=== PATIENT | male | born 1940 | race Hispanic/Latino ===

== ENCOUNTER 2020-03-29 09:00 | Inpatient (IN) | payer MEDICARE ==
[~2020-03-29] VITALS: Ht 176.5 cm; Wt 99.8 kg
[2020-04-04 12:03] LABS: BASOPHILS % (AUTO) 0.5 % (0.0-5.0); EOSINOPHILS % (AUTO) 1.5 % (0.0-8.0); HEMATOCRIT 40.3 % (42-54); LYMPHOCYTES % (AUTO) 27.8 % (21.0-51.0); MEAN CORPUSCULAR HEMOGLOBIN 30.3 pg (27.0-33.0); MEAN CORPUSCULAR HGB CONC 34.2 g/dL (32.0-36.0); MEAN CORPUSCULAR VOLUME 88.4 fL (79-99); MONOCYTES % (AUTO) 11.6 % (3.0-13.0); NEUTROPHILS % (AUTO) 58.2 % (40.0-77.0); PLATELET COUNT (AUTO) 298 K/uL (130-400); RED BLOOD CELL COUNT(AUTO) 4.56 MIL/uL (4.50-6.20); RED CELL DISTRIBUTION WIDTH 12.9 % (11.0-15.5); WHITE BLOOD COUNT (AUTO) 10.6 K/uL (4.8-10.8)
[2020-04-04 12:08] LABS: APPEARANCE,URINE Clear (CLEAR); BILIRUBIN,URINE Negative (NEGATIVE); COLOR,URINE Dark Yellow (YELLOW); GLUCOSE, URINE (UA) Negative (NEGATIVE); KETONES,URINE Negative (NEGATIVE); LEUKOCYTE ESTERASE ,URINE Negative (NEGATIVE); NITRATE,URINE Negative (NEGATIVE); OCCULT BLOOD,URINE Negative (NEGATIVE); PROTEIN,URINE Negative (NEGATIVE); UROBILINOGEN,URINE 0.2 mg/dL (0.2-1.0)
[2020-04-04 12:15] LABS: INR 0.98 (0.85-1.15); PROTHROMBIN TIME 10.6 SEC (9.6-11.6)
[2020-04-04 12:19] LABS: BACTERIA,URINE Rare /HPF (None Seen); RBC,URINE 0-1 /HPF (0-1); SQUAMOUS EPITHELIAL CELL,UR Rare /HPF (0-2); WBC,URINE 0-1 /HPF (0-1)
[2020-04-04 12:51] LABS: POTASSIUM 3.9 mmol/L (3.5-5.1)
[2020-04-04] MEDS ORDERED: KRIL500C PO (13:07)
[2020-04-04] MEDS ORDERED: UBID50TA3 PO (13:07)
[2020-04-04] MEDS ORDERED: LISI-613 PO (13:07)
[2020-04-04] MEDS ORDERED: CALC-1231 PO (13:07)
[2020-04-04 13:23] VITALS: BP 180/80
[2020-04-05] VITALS (23 sets, daily range): BP systolic 120–155; BP diastolic 63–77
[2020-04-05] MEDS ORDERED: B COMPLE (07:08)
[2020-04-05] MEDS ORDERED: CEFAZOLIN SODIUM 1 GM VIAL ONE ×2 (07:13→10:05)
[2020-04-05] MEDS ORDERED: LACTATED RINGERS 1000ML 1,000 ML IV ONE (07:14)
[2020-04-05] MEDS ORDERED: ACETAMINOPHEN EXTRA STRENGTH 500 MG TABLET ONE (08:00)
[2020-04-05] MEDS ORDERED: CELECOXIB 200 MG CAP ONE (08:01)
[2020-04-05] MEDS ORDERED: KETOROLAC TROMETHAMINE 15MG/ML ONE (08:01)
[2020-04-05] MEDS ORDERED: CELECOXIB 200 MG CAP PO SCH (08:15)
[2020-04-05] MEDS ORDERED: KETOROLAC TROMETHAMINE 15MG/ML IV SCH (08:15)
[2020-04-05] MEDS ORDERED: ACETAMINOPHEN EXTRA STRENGTH 500 MG TABLET PO SCH (08:15)
[2020-04-05] MEDS ORDERED: LIDOCAINE PF 2% 5ML ABBOJECT ONE (09:11)
[2020-04-05] MEDS ORDERED: FENTANYL CITRATE PF 50 MCG/1 ML 2ML VIAL ONE (09:12)
[2020-04-05] MEDS ORDERED: ROCURONIUM 10MG/1ML SYR 10 MG/ML ML ONE ×2 (09:12→10:40)
[2020-04-05] MEDS ORDERED: PROPOFOL 10 MG/ML 20ML VIAL IV ONE (09:12)
[2020-04-05] MEDS ORDERED: ROPIVACAINE 0.5% 5MG/ML 30ML IJ ONE (09:14)
[2020-04-05] MEDS ORDERED: TRANEXAMIC ACID 1000MG/10ML ONE ×2 (10:06→12:37)
[2020-04-05] MEDS ORDERED: EPHEDRINE SULFATE 50 MG/ML AMPULE ONE (10:41)
[2020-04-05] MEDS ORDERED: FERROUS FUMARATE 324 MG TABLET PO PRN (12:15)
[2020-04-05] MEDS ORDERED: LIDOCAINE HCL-MPF 1% 2ML VIAL IV PRN (12:15)
[2020-04-05] MEDS ORDERED: TRAMADOL HCL 50 MG TABLET PO PRN (12:15)
[2020-04-05] MEDS ORDERED: CALCIUM CARBONATE 500 MG TABLET PO PRN (12:15)
[2020-04-05] MEDS ORDERED: POTASSIUM CHLORIDE 20 MEQ ERTAB PO PRN (12:15)
[2020-04-05] MEDS ORDERED: KETOROLAC TROMETHAMINE 15MG/ML IV PRN (12:15)
[2020-04-05] MEDS ORDERED: ONDANSETRON HCL 4 MG/2 ML VIAL IVP PRN (12:15)
[2020-04-05] MEDS: ACETAMINOPHEN EXTRA STRENGTH 500 MG TABLET PO SCH ×2 (12:15→20:00)
[2020-04-05] MEDS ORDERED: POTASSIUM CHLORIDE 10% ELIXIR 20 MEQ/15 ML UDCUP PO PRN (12:15)
[2020-04-05] MEDS ORDERED: DiphenhydrAMINE HCL 50 MG/ML VIAL IVP PRN (12:15)
[2020-04-05] MEDS ORDERED: POTASSIUM CHLORIDE 20MEQ/100ML 100 ML IV PRN (12:15)
[2020-04-05] MEDS ORDERED: TEMAZEPAM 15 MG CAPSULE PO PRN (12:15)
[2020-04-05] MEDS ORDERED: OXYCODONE HCL 5 MG TAB PO PRN (12:15)
[2020-04-05] MEDS ORDERED: MEPERIDINE-PF 25 MG/ML SYG ONE ×2 (12:58→13:13)
[2020-04-05] MEDS: SODIUM CHLORIDE 0.9% 1000ML 1,000 ML IV SCH ×2 (14:00→22:15)
[2020-04-05] MEDS: CEFAZOLIN SODIUM 1 GM VIAL IVP SCH (17:25)
--- NOTE | 2020-04-05 17:26 | NUR ---
IA- SPOKE TO [facility] FOR DC PLANNING POST TKA- [facility] SUPPLIED PHYSICAL ADDRESS AND UPDATED IN SYSTEM. PATIENT LIVES WITH SPOUSE, PREVIOUSLY INDEPENDENT W/O NO DME, HOME SAFE/ACCESSIBLE WITHOUT STAIRS, [facility]SE TO PROVIDE TRANSPORT HOME,PT OF DR. JOSEPH AND FOLLOWS W/ HER REGULARLY. PLAN OF CARE EXPLAINED . AWARE THAT 3 IN 1 CHIAR IS NOT A COVERED ITEM, WILL EXPECT TO MAKE ARRANGEMENTS WITH DME COMPANY. [facility] AND [facility]. CM TO FOLLOW Addendum: 04/05/20 at 1733 by JOSIE RAMON RN CM Amended: Links added.
[2020-04-05] MEDS: OXYCODONE HCL 5 MG TAB PO PRN (19:59)
[2020-04-05] MEDS: PREGABALIN 25 MG CAP PO SCH (20:00)
[2020-04-05] MEDS: ASPIRIN 81MG TAB.CHEW PO SCH (20:00)
[2020-04-05] MEDS: FAMOTIDINE 20MG TAB 20 MG TAB PO SCH (20:00)
[2020-04-05] MEDS: CELECOXIB 200 MG CAP PO SCH (20:00)
[2020-04-06] VITALS (7 sets, daily range): BP systolic 117–141; BP diastolic 58–71
[2020-04-06] MEDS: CEFAZOLIN SODIUM 1 GM VIAL IVP SCH (00:26)
[2020-04-06] MEDS: OXYCODONE HCL 5 MG TAB PO PRN ×3 (00:27→20:36)
[2020-04-06 03:31] LABS: HEMATOCRIT 33.4 % (42-54); MEAN CORPUSCULAR HEMOGLOBIN 31.3 pg (27.0-33.0); MEAN CORPUSCULAR VOLUME 89.3 fL (79-99); RED BLOOD CELL COUNT(AUTO) 3.74 MIL/uL (4.50-6.20); RED CELL DISTRIBUTION WIDTH 12.7 % (11.0-15.5); WHITE BLOOD COUNT (AUTO) 16.6 K/uL (4.8-10.8)
[2020-04-06 03:43] LABS: CREATININE 1.3 mg/dL (0.5-1.5); POTASSIUM 4.3 mmol/L (3.5-5.1)
[2020-04-06] MEDS: ACETAMINOPHEN EXTRA STRENGTH 500 MG TABLET PO SCH ×3 (04:29→23:37)
[2020-04-06] MEDS: SODIUM CHLORIDE 0.9% 1000ML 1,000 ML IV SCH (08:15)
[2020-04-06] MEDS: VITAMIN D3 PO SCH (09:00)
[2020-04-06] MEDS: TAMSULOSIN HCL 0.4 MG CAP.ER.24H PO SCH (09:00)
[2020-04-06] MEDS: CALCIUM CARB PO SCH (09:00)
[2020-04-06] MEDS: VIT K1 PO SCH (09:00)
[2020-04-06] MEDS: PREGABALIN 25 MG CAP PO SCH ×2 (09:22→20:35)
[2020-04-06] MEDS: FAMOTIDINE 20MG TAB 20 MG TAB PO SCH ×2 (09:22→20:34)
[2020-04-06] MEDS: LISINOPRIL 20 MG TABLET PO SCH (09:23)
[2020-04-06] MEDS: POLYETHYLENE GLYCOL 3350 17 GM POWD.PACK PO SCH (09:23)
[2020-04-06] MEDS: ASPIRIN 81MG TAB.CHEW PO SCH ×2 (09:23→20:35)
[2020-04-06] MEDS: CELECOXIB 200 MG CAP PO SCH ×2 (09:23→20:35)
--- NOTE | 2020-04-06 10:00 | NUR ---
CM Note: [facility] pending approval, [facility] pending approval and delivery CM faxed order and clinicals to [facility], confirmation received. Spoke to Rosemarie received request. Will check benefits. Pt pending approval. Primary nurse aware. CM to cont to follow up. CM faxed orer and clnicals to [facility], confirmation received. Spoke to Iqra received request will work on DME, aware dcp once DME delivered. Pt pending approval and delivery for standard walker no wheels and 3 in 1 chair. Primary nurse aware. CM to cont to follow up.
--- NOTE | 2020-04-06 11:23 | NUR ---
[id number] patient signed IM Letter, I faxed IM Letter to [phone] and placed in chart under consent tab.
--- NOTE | 2020-04-06 16:32 | NUR ---
CM Note: [facility] approval CM spoke to Rosemarie narayan/[facility], pt has approval. Primary nurse aware. CM to cont to follow up.
--- NOTE | 2020-04-06 16:33 | NUR ---
RHONDA Note: [facility] approval pending delivery CM spoke to Iqra narayan/[facility], pt has approval for standard walker no wheels, pending to be delivered at home today/tomorrow. Primary nurse aware. CM to cont to follow up.
[2020-04-07 03:45] VITALS: BP 141/72
[2020-04-07 03:57] LABS: HEMATOCRIT 34.5 % (42-54); MEAN CORPUSCULAR HEMOGLOBIN 30.7 pg (27.0-33.0); MEAN CORPUSCULAR HGB CONC 33.6 g/dL (32.0-36.0); MEAN CORPUSCULAR VOLUME 91.3 fL (79-99); RED BLOOD CELL COUNT(AUTO) 3.78 MIL/uL (4.50-6.20); RED CELL DISTRIBUTION WIDTH 13.3 % (11.0-15.5); WHITE BLOOD COUNT (AUTO) 14.4 K/uL (4.8-10.8)
[2020-04-07 04:07] LABS: CREATININE 1.1 mg/dL (0.5-1.5); POTASSIUM 4.2 mmol/L (3.5-5.1)
[2020-04-07 07:30] VITALS: BP 146/77
[2020-04-07] MEDS: ACETAMINOPHEN EXTRA STRENGTH 500 MG TABLET PO SCH (07:57)
[2020-04-07] MEDS: OXYCODONE HCL 5 MG TAB PO PRN ×2 (07:58→12:00)
[2020-04-07] MEDS: CALCIUM CARB PO SCH (09:00)
[2020-04-07] MEDS: VIT K1 PO SCH (09:00)
[2020-04-07] MEDS: VITAMIN D3 PO SCH (09:00)
[2020-04-07] MEDS: TAMSULOSIN HCL 0.4 MG CAP.ER.24H PO SCH (09:00)
--- NOTE | 2020-04-07 09:30 | NUR ---
CM Note: [facility] delivered Pt verified standard walker no wheels delivered in pt's room. 3 in 1 chair purchased privately by spouse, will be delivered at pt's house. Primary nurse aware. Dr Mendoza updated. Pt has approval for [facility] yesterday. Safe to DC home via private car once MD clear. Primary nurse aware. CM to cont to follow up.
[2020-04-07] MEDS: PREGABALIN 25 MG CAP PO SCH (10:49)
[2020-04-07] MEDS: CELECOXIB 200 MG CAP PO SCH (10:50)
[2020-04-07] MEDS: LISINOPRIL 20 MG TABLET PO SCH (10:50)
[2020-04-07] MEDS: FAMOTIDINE 20MG TAB 20 MG TAB PO SCH (10:50)
[2020-04-07] MEDS: ASPIRIN 81MG TAB.CHEW PO SCH (10:50)
[2020-04-07] MEDS: POLYETHYLENE GLYCOL 3350 17 GM POWD.PACK PO SCH (10:51)
[2020-04-07 11:00] VITALS: BP 114/54
[2020-04-07] MEDS ORDERED: HYDR-4457 PO (11:36)
[2020-04-07] MEDS ORDERED: ASPI-1005 PO (11:36)
--- NOTE | 2020-04-07 14:50 | NUR ---
PT D/C TO HOME WITH HOME HEALTH; I HAVE TRIED TO CALL REPORT TO [facility] BUT IT WENT TO A VOICE MAIL I HAVE LEFT MY NAME AND NUMBER AND STATED THAT PT IS BEING D/C HOME TODAY; I HAVE CHANGED THE [employer] DRESSING TO PT'S RIGHT KNEE USING CLEAN TECHNIQUE AND APPLIED A NEW MELCHOR DRESSING--PT HAS A WELL APPROX. INC. LINE WITH ABSORBABLE SUTURES IN PLACE, SURROUNDING TISSUE PINK IN COLOR, NO REDNESS OR DRAINAGE NOTED, MOD. GENERALIZED EDEMA NOTED--PT REID. PROC. WELL--I DISCUSSED WITH PATIENT INC. CARE INSTRUCTIONS INCLUDING THAT IT IS OK TO SHOWER WITH IT IN PLACE EXCEPT TO REMOVE BATTERY PACK FIRST AND THAT THE DRESSING SHOULD BE REMOVED NEXT FRIDAY-- I HAVE DISCUSSED WITH PATIENT AFTER CARE INSTRUCTIONS FOR A KNEE REPLACEMENT INCLUDING ACTIVITY, USE OF WALKER, SIGNS AND SYMPTOMS OF INFECTION TO WATCH FOR AND REPORT, PERSCRIPTIONS FOR ASPIRIN BLOOD THINNER AND [facility]CO PAIN MEDS AND FOLLOW UP APPOINTMENT; I HAVE CALLED PT'S AND GIVEN HER ALL THE SAME INSTRUCTIONS; BOTH STATED UNDERSTANDING OF ALL INSTRUCTIONS; I HAVE CALLED [facility] IN REGARDS TO PT'S PERSCRIPTION AND GIVEN THEM DR ORTA OFFICE NUMBER BECAUSE THEY STATED THEY HAVEN'T FILLED IT BECAUSE IT IS MISSING A DX--I EXPLAINED THIS TO PT'S IN REGARDS TO PICKING UP PERSCRIPTION TO CALL PHARMACY FIRST. IV ACCESS REMOVED AND PT ASSISTED DOWNSTAIRS TO AND PERSONAL CAR.
[2020-04-08] MEDS ORDERED: BISACODYL 10 MG SUPP.RECT RC PRN (12:15)
== END 2020-04-07 15:00 | disposition home health service (06) | DRG 470 ==
LOC: EDSTATUS 09:00 → DAHIP 04-05 06:22 → 3AH 04-05 13:43
PROVIDERS: ADMIT Orthopaedic Surgery; ATTEND Orthopaedic Surgery
PROC: 0SRC0J9 Replacement of Right Knee Joint with Synthetic Substitute, Cemented, Open Approach (ICD-10-PCS; principal; 2020-04-05 09:45)
DX: M17.11 Unilateral primary osteoarthritis, right knee (principal); E78.1 Pure hyperglyceridemia; E78.5 Hyperlipidemia, unspecified; I10 Essential (primary) hypertension; N40.0 Benign prostatic hyperplasia without lower urinary tract symptoms; Z87.19 Personal history of other diseases of the digestive system; Z96.652 Presence of left artificial knee joint; H40.9 Unspecified glaucoma; M19.90 Unspecified osteoarthritis, unspecified site; Z90.49 Acquired absence of other specified parts of digestive tract; G89.29 Other chronic pain; R26.89 Other abnormalities of gait and mobility; Z20.828 Contact with and (suspected) exposure to other viral communicable diseases
CPT/HCPCS: 36415; 80048; 81001; 85025; 85027; 85610; 87641; 96374; 97039; G0378; J0690; J1885; J2001; J2175; J2704; J2795; J3010; J3490; J7120; U0003

== ENCOUNTER 2024-02-15 14:20 | Emergency (ER) | payer MEDICARE ==
[~2024-02-15] VITALS: Ht 182.9 cm; Wt 106.6 kg
[~2024-02-15 14:20] MED LIST: ASPI-1005 PO; B COMPLE; CALC-1231 PO; HYDR-4457 PO; KRIL500C PO; LISI20TA24 PO; UBID50TA3 PO
[2024-02-15 14:53] LABS: SARS-CoV-2, RNA, NAAT POSITIVE SARS CoV-2 (NEGATIVE)
[2024-02-15 15:01] LABS: INFLUENZA TYPE A Negative For Type A (NEGATIVE); INFLUENZA TYPE B Negative For Type B (NEGATIVE)
[2024-02-15] MEDS: ACETAMINOPHEN 500 MG TABLET PO ONE (15:25)
[2024-02-15 15:58] LABS: BASOPHILS # (AUTO) 0.06 K/uL (0.00-0.20); BASOPHILS % (AUTO) 0.6 % (0.0-5.0); EOSINOPHILS % (AUTO) 1.9 % (0.0-8.0); HEMATOCRIT 41.6 % (42-54); IMMATURE GRANULOCYTE ABSOLUTE 0.02 K/uL (0-1); LYMPHOCYTES % (AUTO) 9.7 % (21.0-51.0); MEAN CORPUSCULAR HGB CONC 33.9 g/dL (32.0-36.0); MEAN CORPUSCULAR VOLUME 91.4 fL (79-99); MONOCYTES # (AUTO) 1.6 K/uL (0.1-1.0); MONOCYTES % (AUTO) 14.7 % (3.0-13.0); NEUTROPHILS # (AUTO) 7.7 K/uL (1.8-7.7); NEUTROPHILS % (AUTO) 72.9 % (40.0-77.0); PLATELET COUNT (AUTO) 217 K/uL (130-400); RED BLOOD CELL COUNT(AUTO) 4.55 MIL/uL (4.50-6.20); WHITE BLOOD COUNT (AUTO) 10.6 K/uL (4.8-10.8)
[2024-02-15 16:05] VITALS: TEMP 98.6
[2024-02-15 16:14] LABS: CREATININE 1.4 mg/dL (0.5-1.3)
[2024-02-15] MEDS ORDERED: AZIT250T PO (16:25)
[2024-02-15 16:31] VITALS: BP 161/70; PULSE 80; RESP 14; O2SAT 98
== END 2024-02-15 16:34 | disposition home or self-care (01) ==
LOC: EDH 14:20
DX: U07.1 COVID-19 (principal); E78.00 Pure hypercholesterolemia, unspecified; I10 Essential (primary) hypertension; Z79.82 Long term (current) use of aspirin; Z79.899 Other long term (current) drug therapy; Z98.890 Other specified postprocedural states
CPT/HCPCS: 36415; 71045; 80048; 85025; 87635; 87804